=== PATIENT | male | born 1955 | race Caucasian/White ===

== ENCOUNTER 2020-09-10 16:30 | Emergency (ER) | payer MEDICARE, OTHER ==
[~2020-09-10 16:30] MED LIST: ALLOPURINOL100 MG PO; ASPIR 8181 MG PO; ASPIRIN CHEWABL81 MG PO; EFFEXOR XR150 MG PO; ELIQUIS 5 MG TAB5 MG PO; FERROUS SULFAT325 MG PO; MIRTAZAPINE30 MG PO; MUCINEX600 MG PO; NEXIUM40 MG PO; NITROSTAT 0.40.4 MG SL; OXYCODONE HCL10 MG PO; PREDNISONE 50 M50 MG PO; PREDNISONE20 MG PO; ROXICODONE5 MG PO; TENORMIN 50 MG50 MG PO; TESSALON PERLE100 MG PO; TRAZODONE HCL50 MG PO; VALIUM 5 MG TAB5 MG PO; VENTOLIN HFA 66.7 GM INH; VIBRAMYCIN 100100 MG PO
[2020-09-10 17:34] LABS: HEMOGLOBIN 13.3 gm/dl (14.0-17.5); RED BLOOD COUNT 4.1 M/UL (4.20-5.50); WHITE BLOOD COUNT 4.9 K/UL (4.5-11.0)
[2020-09-10 17:48] LABS: BUN/CREATININE RATIO 16 (0-10)
[2020-09-17] MEDS ORDERED: VENLAFAXINE H37.5 M2 PO (08:53)
[2020-09-17] MEDS ORDERED: CYCLOBENZAPRINE10 MG PO (08:53)
[2020-09-17] MEDS ORDERED: AMITRIPTYLINE H25 MG PO (08:54)
[2020-09-17] MEDS ORDERED: PRAVASTATIN SOD20 MG PO (08:54)
[2020-09-17] MEDS ORDERED: DIFLUCAN100 MG PO (12:09)
== END 2020-09-10 19:55 | disposition home or self-care (01) ==
LOC: ER1 16:30
PROVIDERS: Emergency Medicine
DX: K22.8 Other specified diseases of esophagus (principal); I10 Essential (primary) hypertension; I25.10 Atherosclerotic heart disease of native coronary artery without angina pectoris; I25.2 Old myocardial infarction; Z86.19 Personal history of other infectious and parasitic diseases; Z88.0 Allergy status to penicillin; Z88.2 Allergy status to sulfonamides
CPT/HCPCS: 71260; 80053; 82550; 82553; 83690; 83735; 83874; 84100; 84484; 85025; 85610; 85730; 93005; 99284; Q9967

== ENCOUNTER → 2020-09-17 | Day surgery (SDC) | payer MEDICARE, OTHER ==
[~2020-09-17] MED LIST changes: +AMITRIPTYLINE H25 MG PO; +CYCLOBENZAPRINE10 MG PO; +DIFLUCAN100 MG PO; +PRAVASTATIN SOD20 MG PO; +VENLAFAXINE H37.5 M2 PO
== END | disposition home or self-care (01) ==
LOC: OR 07:33
PROVIDERS: Internal Medicine Gastroenterology
PROC: 0DJ08ZZ Inspection of Upper Intestinal Tract, Via Natural or Artificial Opening Endoscopic (ICD-10-PCS; principal; 2020-09-17 13:45)
DX: B37.81 Candidal esophagitis (principal); K31.819 Angiodysplasia of stomach and duodenum without bleeding; K21.9 Gastro-esophageal reflux disease without esophagitis; K74.60 Unspecified cirrhosis of liver; I25.2 Old myocardial infarction; I10 Essential (primary) hypertension; J45.909 Unspecified asthma, uncomplicated; M10.9 Gout, unspecified; E66.9 Obesity, unspecified; Z68.30 Body mass index [BMI] 30.0-30.9, adult; Z20.822 Contact with and (suspected) exposure to COVID-19; Z86.73 Personal history of transient ischemic attack (TIA), and cerebral infarction without residual deficits; Z88.0 Allergy status to penicillin; Z88.2 Allergy status to sulfonamides; Z79.02 Long term (current) use of antithrombotics/antiplatelets; Z79.82 Long term (current) use of aspirin; Z79.899 Other long term (current) drug therapy
CPT/HCPCS: J7040

== ENCOUNTER → 2020-11-22 | Outpatient (CLI) | payer MEDICARE, OTHER | LOC: RAD 10-30 08:00 | DX: R13.10 Dysphagia, unspecified (principal); K21.9 Gastro-esophageal reflux disease without esophagitis; K22.4 Dyskinesia of esophagus | CPT/HCPCS: 74220 ==